=== PATIENT | male | born 2000 | race Caucasian/White ===

== ENCOUNTER 2022-02-24 14:57 | Emergency (ER) | payer OTHER ==
[~2022-02-24] VITALS: Ht 190.5 cm; Wt 74.8 kg
[2022-02-24] MEDS ORDERED: ZYRTEC10 M3 (15:16)
[2022-02-24] MEDS ORDERED: OMEPRAZOLE MAGN20 MG (15:16)
[2022-02-24] MEDS ORDERED: ZANTAC-360 (FAM10 MG (15:16)
[2022-02-24] MEDS ORDERED: [UNRECOGNIZED DRUG - OTHER] (15:17)
== END 2022-02-24 18:07 | disposition home or self-care (01) ==
LOC: ER 14:57
DX: B34.9 Viral infection, unspecified (principal); Z20.822 Contact with and (suspected) exposure to COVID-19

== ENCOUNTER 2022-02-27 10:05 | Outpatient (CLI) | payer OTHER ==
[~2022-02-27 10:05] MED LIST: OMEPRAZOLE MAGN20 MG; ZANTAC-360 (FAM10 MG; ZYRTEC10 M3; [UNRECOGNIZED DRUG - OTHER]
== END 2022-02-27 11:05 | disposition home or self-care (01) ==
LOC: ASH CLINIC 10:05
PROVIDERS: ATTEND Emergency Medicine
DX: U07.1 COVID-19 (principal)